=== PATIENT | male | born 1980 | race Caucasian/White ===

== ENCOUNTER 2021-03-09 16:47 | Emergency (ER) | payer OTHER ==
[~2021-03-09] VITALS: Ht 182.9 cm; Wt 80.7 kg
[2021-03-09 20:22] LABS: URINE BILIRUBIN NEGATIVE (Negative); URINE BLOOD 1+ (Negative); URINE CLARITY CLEAR; URINE COLOR YELLOW; URINE GLUCOSE-RANDOM NEGATIVE (Negative); URINE KETONES NEGATIVE (Negative); URINE LEUKOCYTES NEGATIVE (Negative); URINE NITRITE NEGATIVE (Negative); URINE PROTEIN NEGATIVE (Negative); URINE SPECIFIC GRAVITY >= 1.030 (1.005-1.030); URINE UROBILINOGEN 0.2 E.U./dl (0.2-1.0)
[2021-03-09 20:30] LABS: AMP/METHAMP Negative (Negative); BARBITURATES Negative (Negative); BENZODIAZEPINES Negative (Negative); COCAINE Negative (Negative); HYALINE CASTS 0-3 Few /LPF (None Seen); METHADONE Negative (Negative); OPIATES Negative (Negative); PCP Negative (Negative); SQUAMOUS NONE SEEN /LPF (0-3); THC POSITIVE (Negative)
[2021-03-09 20:31] LABS: BACTERIA None Seen /HPF (None Seen); CRYSTALS None Seen /LPF (None Seen); MUCUS None Seen strn/LPF (None Seen); URINE RBC 0-2 Rare /HPF (0-2); URINE WBC None Seen /HPF (0-5)
[2021-03-09] MEDS ORDERED: MEDROLDOSEPACK PO (20:57)
[2021-03-09] MEDS ORDERED: FLEXERIL PO (20:57)
[2021-03-09] MEDS ORDERED: HYDROCODON-ACE1 EAC8 PO (20:57)
[2021-03-09 21:05] VITALS: BP 120/82
== END 2021-03-09 21:06 | disposition home or self-care (01) ==
LOC: M.ERS 16:47
PROVIDERS: Emergency Medicine; Physician Assistant
DX: M54.16 Radiculopathy, lumbar region (principal); F17.210 Nicotine dependence, cigarettes, uncomplicated